=== PATIENT | male | born 1995 | race Two or more races ===

== ENCOUNTER 2023-04-11 16:26 | Emergency (ER) | payer OTHER ==
[~2023-04-11] VITALS: Ht 175.3 cm; Wt 130.7 kg
[2023-04-11 17:11] VITALS: BP 127/79
[2023-04-11] MEDS ORDERED: ACETAMINOPHEN 500 MG TAB PO ONE (17:15)
[2023-04-11] MEDS ORDERED: METH750T22 PO (18:26)
[2023-04-11] MEDS ORDERED: IBUP800T27 PO (18:26)
== END 2023-04-11 18:31 | disposition home or self-care (01) ==
LOC: ER 16:26
DX: S13.9XXA Sprain of joints and ligaments of unspecified parts of neck, initial encounter (principal); S39.012A Strain of muscle, fascia and tendon of lower back, initial encounter; V49.9XXA Car occupant (driver) (passenger) injured in unspecified traffic accident, initial encounter; Y93.89 Activity, other specified; Y92.89 Other specified places as the place of occurrence of the external cause; Y99.8 Other external cause status
CPT/HCPCS: 72040; 72100